=== PATIENT | male | born 1990 | race Caucasian/White ===

== ENCOUNTER 2020-01-31 07:27 | Emergency (ER) | payer OTHER, SELFPAY ==
[2020-01-31 07:45] VITALS: BP 144/79; PULSE 67; RESP 16; TEMP 37.2; O2SAT 100; BMI 32.4
--- NOTE | 2020-01-31 07:55 | CT_ITS ---
EXAMINATION: CT ABDOMEN AND PELVIS WITHOUT CONTRAST CLINICAL INFORMATION: Low back pain with rectal discomfort constipation. COMPARISON: None TECHNIQUE: Multidetector volumetric imaging was performed from the superior aspect of the liver through the pubic symphysis. Sagittal and coronal reformatted images were obtained on the technologist's workstation. This CT examination was performed using dose optimization techniques as appropriate, variously including the following: *Automated exposure control *Adjustment of mA and/or kV according to patient size (this includes techniques or standardized protocols for targeted exams where dose is matched to indication/reason for exam; i.e. extremities or head) *Use of iterative reconstruction technique DLP: 928.94 mGy-cm FINDINGS: LUNG BASES: The visualized lung bases are unremarkable. No pleural or pericardial effusion. LIVER, GALLBLADDER, AND BILIARY TREE: The liver is normal in size, shape, and attenuation. No focal hepatic lesion or biliary ductal dilatation is present. The gallbladder is unremarkable with no evidence of radiopaque gallstones, gallbladder wall thickening, or obvious pericholecystic inflammatory changes. PANCREAS: Unremarkable. SPLEEN: Unremarkable. ADRENAL GLANDS: Unremarkable. KIDNEYS AND URETERS: The kidneys are normal in size, shape, and attenuation. No hydronephrosis, hydroureter, or calculi seen. No perinephric stranding. BLADDER: Unremarkable. GASTROINTESTINAL TRACT: No dilated loops of large or small bowel are evident. No free air or free fluid is seen. No evidence of acute diverticulitis. No pericolonic inflammatory change. The appendix is visualized and appears unremarkable. Stool is seen within the rectum and sigmoid colon as well as the as ascending colon and proximal transverse colon without significant dilatation. ABDOMINAL WALL: No significant hernia is appreciated. LYMPH NODES: No lymphadenopathy identified. VASCULAR: Unremarkable. PELVIC VISCERA: Unremarkable. OSSEOUS STRUCTURES: Unremarkable. CT/CT abdomen pelvis wo con IMPRESSION: No significant abnormality. No evidence of free intra-abdominal air or fluid. No evidence of obstruction.
--- NOTE | 2020-01-31 07:55 | ED.ABDPAIN ---
HPI - Abdominal Pain General Chief Complaint: Back Pain/Injury Stated Complaint: flank pain Time Seen by Provider: 01/31/20 07:54 Source: patient Mode of arrival: ambulatory Limitations: no limitations History of Present Illness MD elicited complaint: other (hemorrhoid, constipation, low back pain) Pertinent past history: constipation Onset (ago): month(s) (few) Pain Consistency: constant Location: other (rectum and low babck) Severity: moderate Quality: aching Radiation: none Migration to: no migration Exacerbating factors: bowel movement and movement Relieving factors: nothing Associated symptoms: constipation and hematochezia (occasionally has streaked blood on stool, has tried OTCH preparation H) Related Data Previous Rx's Medication Instructions Recorded cyclobenzaprine 10 mg PO TID PRN #14 tab 01/31/20 lidocaine 1 patch TOPICAL DAILY PRN #10 ea 01/31/20 polyethylene glycol 3350 [Miralax] 17 g PO DAILY PRN #119 g 01/31/20 pramoxine [Proctofoam] 1 applic OK TID PRN #15 g 01/31/20 sennosides [senna] 8.6 mg PO DAILY PRN #30 cap 01/31/20 Allergies Allergy/AdvReac Type Severity Reaction Status Date / Time No Known Allergies Allergy Verified 01/31/20 07:48 Review of Systems Review of Systems Constitutional : No Weight loss, No Fever, No Chills, ENT/Mouth : No Hearing loss, No Ear Pain, No Nasal Congestion, No Sinus Pain, No Hoarseness, No sore throat, No Rhinorrhea, No Swallowing Difficulty Cardiovascular : No Chest Pain, No SOB Respiratory : No Cough, No Dyspnea Gastrointestinal : No Nausea, No Vomiting, No Diarrhea, No abdominal Pain, Pos constipation, pos Hematochezia, No Melena Genitourinary : No Dysuria, No Urinary Frequency, No Hematuria, No Urinary Incontinence, Musculoskeletal : positive back pain Skin : No Skin Lesions, No rash Neuro : No Weakness, No Numbness, No Paresthesias, no loss of bowel or bladder incontinence, no saddle anesthesia All other ROS reviewed and are negative Physical Exam Vital Signs: Vital Signs: Last Vital Signs Temp 98.9 F 01/31/20 07:45 Pulse 67 01/31/20 07:45 Resp 16 01/31/20 07:45 BP 144/79 H 01/31/20 07:45 Pulse Ox 100 01/31/20 07:45 Body Mass Index 32.4 Appearance: Alert. Oriented X3. No acute distress. Eyes: Pupils equal, round and reactive to light. ENT: Pharynx normal. Neck: Normal inspection. Neck supple. CVS: Normal heart rate and rhythm. Pulses normal. Respiratory: No respiratory distress. Breath sounds normal. Abdomen: Soft and nontender. Back: ttp bilateral lower lumbar no midline ttp Rectal: no thrombosis of small external hemorrhoid, small non bleeding internal hemorrhoid, no mass felt, tone normal Skin: Skin warm and dry. Normal skin color. Normal skin turgor. Extremities: No lower extremity edema. No calf ttp Neuro: Oriented X 3. No motor deficit. No sensory deficit. Course Course Course Narrative: no acute findings, will DC with GI follow up and stool regimen along with back medications MDM - Abdominal Pain MDM Narrative Medical decision making narrative: 30 yo male otherwise healthy here with low back pain, constipation, hemorrhoids for months - no weight loss, at this time will need CT scan for large mass/stool burden though likely needs good bowel regimen, water intake, will also refer to GI for colonoscopy, no b/b incontinence, no saddle anesthesia Discharge Plan Discharge Clinical Impression: Strain of lumbar region Qualifiers: Encounter type: initial encounter Qualified Code(s): S39.012A - Strain of muscle, fascia and tendon of lower back, initial encounter Constipation Qualifiers: Constipation type: unspecified constipation type Qualified Code(s): K59.00 - Constipation, unspecified Hemorrhoids Qualifiers: Hemorrhoid type: unspecified Qualified Code(s): K64.9 - Unspecified hemorrhoids Patient Disposition: Home, Self-Care Instructions: Constipation (ED), Hemorrhoids (ED), Acute Low Back Pain (ED) Additional Instructions: return to ED for any worsening symptoms or concerns Prescriptions: New cyclobenzaprine 10 mg tablet 10 mg PO TID PRN (Reason: muscle spasm) Qty: 14 RF: 0 polyethylene glycol 3350 [Miralax] 17 gram/dose powder 17 g PO DAILY PRN (Reason: constipation) Qty: 119 RF: 0 senna 8.6 mg capsule 8.6 mg PO DAILY PRN (Reason: constipation) Qty: 30 RF: 0 lidocaine 4 % adhesive patch,medicated 1 patch topical DAILY PRN (Reason: pain) Qty: 10 RF: 0 pramoxine [Proctofoam] 1 % foam 1 applic OK TID PRN (Reason: hemorrhoids) Qty: 15 RF: 0 Referrals: Tai Vu MD [Physician] - 1 week Stand Alone Forms: Work/School Release [facility] Past Medical History Attestation statement: The following information was validated with the patient. Medical History No known health problems Social History Social History Smoking Status: Never smoker Use of substances other than those prescribed or required for medical reasons: No Advance Directives: No Advance Directives Information Provided: No
[2020-01-31 09:30] VITALS: BP 148/87; PULSE 87
== END 2020-01-31 09:32 | disposition home or self-care (01) ==
PROVIDERS: Emergency Provider Emergency Medicine
DX: S39.012A Strain of muscle, fascia and tendon of lower back, initial encounter (principal); K59.00 Constipation, unspecified; K64.9 Unspecified hemorrhoids; M54.6 Pain in thoracic spine; X58.XXXA Exposure to other specified factors, initial encounter; Y93.9 Activity, unspecified; Y92.9 Unspecified place or not applicable; Y99.9 Unspecified external cause status; Z79.899 Other long term (current) drug therapy
CPT/HCPCS: 74176; 99284

== ENCOUNTER 2020-02-01 06:43 | Emergency (ER) | payer OTHER, SELFPAY ==
[2020-02-01 06:55] VITALS: BP 155/97; PULSE 73; RESP 18; TEMP 36.4; O2SAT 100; BMI 32.3
--- NOTE | 2020-02-01 06:59 | ED.ABDPAIN ---
HPI - Abdominal Pain General Chief Complaint: Back Pain/Injury Stated Complaint: BACK PAIN/CONSTIPATION Time Seen by Provider: 02/01/20 06:56 Source: patient and old records reviewed Mode of arrival: ambulatory Limitations: no limitations History of Present Illness HPI narrative: tingling in his back and burning but also cannot have a BM since he was seen yesterday and Rx medications MD elicited complaint: other (constipation) Pertinent past history: constipation Onset (ago): month(s) (few ) Pain Consistency: intermittent Location: diffuse and other (back) Severity: moderate Quality: burning Radiation: none Migration to: no migration Exacerbating factors: bowel movement Relieving factors: nothing Associated symptoms: constipation Treatments prior to arrival: NSAIDs, prescription analgesics and other (tried taking stool regimen but no BM) Related Data Previous Rx's Medication Instructions Recorded cyclobenzaprine 10 mg PO TID PRN #14 tab 01/31/20 lidocaine 1 patch TOPICAL DAILY PRN #10 ea 01/31/20 polyethylene glycol 3350 [Miralax] 17 g PO DAILY PRN #119 g 01/31/20 pramoxine [Proctofoam] 1 applic OK TID PRN #15 g 01/31/20 sennosides [senna] 8.6 mg PO DAILY PRN #30 cap 01/31/20 Allergies Allergy/AdvReac Type Severity Reaction Status Date / Time No Known Allergies Allergy Verified 01/31/20 07:48 Review of Systems Review of Systems Constitutional : No Weight loss, No Fever, No Chills, ENT/Mouth : No Hearing loss, No Ear Pain, No Nasal Congestion, No Sinus Pain, No Hoarseness, No sore throat, No Rhinorrhea, No Swallowing Difficulty Cardiovascular : No Chest Pain, No SOB Respiratory : No Cough, No Dyspnea Gastrointestinal : No Nausea, No Vomiting, No Diarrhea, No abdominal Pain, No Hematochezia, No Melena, positive constipation Genitourinary : No Dysuria, No Urinary Frequency, No Hematuria, No Urinary Incontinence, Musculoskeletal : positive back pain Skin : No Skin Lesions, No rash Neuro : No Weakness, No Numbness, No Paresthesias, no loss of bowel or bladder incontinence, no saddle anesthesia All other systems reviewed and are negative Physical Exam Vital Signs: Vital Signs: Last Vital Signs Temp 97.6 F 02/01/20 06:55 Pulse 73 02/01/20 06:55 Resp 18 02/01/20 06:55 BP 155/97 H 02/01/20 06:55 Pulse Ox 100 02/01/20 06:55 Body Mass Index 32.3 Appearance: Alert. Oriented X3. No acute distress. Anxious Eyes: Pupils equal, round and reactive to light. ENT: Pharynx normal. Neck: Normal inspection. Neck supple. CVS: Normal heart rate and rhythm. Pulses normal. Respiratory: No respiratory distress. Breath sounds normal. Abdomen: Soft and nontender. Skin: Skin warm and dry. Normal skin color. Normal skin turgor. Extremities: No lower extremity edema. No calf ttp Neuro: Oriented X 3. No motor deficit. No sensory deficit. Course Course Course Narrative: LABS WNL MDM - Abdominal Pain MDM Narrative Medical decision making narrative: 30 yo male with burning back pain for a few months now with constipation - has normal rectal tone, no b/b incontinence, no saddle anesthesia, seen yesterday for same CT scan stool burden - given Rx but no BM, he is very concerned - given repeat visit, lytes ordered and will give lactulose and mag citrate for BM - no need for repeat imaging. Lab Data Result diagrams: 02/01/20 07:04 02/01/20 07:04 Labs: Lab Results 02/01/20 Range/Units 07:04 Sodium 137 (135-145) mmol/L Potassium 4.2 (3.3-5.1) mmol/l Chloride 101 (96-108) mmol/L Carbon Dioxide 30 H (22-29) mmol/L Anion Gap 10 L (12-20) BUN 15 (9-16) mg/dL Creatinine 1.11 (0.5-1.4) mg/dL Estim Creat Clear Calc 121.2 Estimated GFR > 60 Random Glucose 103 (60-115) mg/dL Calcium 8.8 (8.4-10.2) mg/dL Magnesium 2.1 (1.6-2.6) mg/dL Discharge Plan Discharge Clinical Impression: Constipation Qualifiers: Constipation type: unspecified constipation type Qualified Code(s): K59.00 - Constipation, unspecified Patient Disposition: Home, Self-Care Instructions: Constipation (ED) Additional Instructions: return to ED for any worsening symptoms or concerns TAKE THE MAGNESIUM CITRATE 1/4 OF BOTTLE EVERY 30 MINUTES UNTIL BOWEL MOVEMENT ACHIEVED. DRINK PLENTY OF WATER Prescriptions: No Action cyclobenzaprine 10 mg tablet 10 mg PO TID PRN (Reason: muscle spasm) Qty: 14 RF: 0 polyethylene glycol 3350 [Miralax] 17 gram/dose powder 17 g PO DAILY PRN (Reason: constipation) Qty: 119 RF: 0 senna 8.6 mg capsule 8.6 mg PO DAILY PRN (Reason: constipation) Qty: 30 RF: 0 lidocaine 4 % adhesive patch,medicated 1 patch topical DAILY PRN (Reason: pain) Qty: 10 RF: 0 pramoxine [Proctofoam] 1 % foam 1 applic OK TID PRN (Reason: hemorrhoids) Qty: 15 RF: 0 PMFSH Past Medical History Attestation statement: The following information was validated with the patient. Medical History No known health problems Social History Social History Smoking Status: Never smoker Smoked in Last 30 Days: No Use of substances other than those prescribed or required for medical reasons: No Advance Directives: No Advance Directives Information Provided: No
[2020-02-01 07:34] LABS: Anion Gap 10 (12-20); Blood Urea Nitrogen 15 mg/dL (9-16); Calcium 8.8 mg/dL (8.4-10.2); Carbon Dioxide 30 mmol/L (22-29); Chloride 101 mmol/L (96-108); Creatinine Clr Calc Pharmacy 121.2; Estimated Glomerular Filt Rate > 60; Glucose Random 103 mg/dL (60-115); Magnesium 2.1 mg/dL (1.6-2.6); Potassium 4.2 mmol/l (3.3-5.1); Sodium 137 mmol/L (135-145)
[2020-02-01] MEDS: Magnesium Citrate 300 ML SOLUTION PO (07:46)
[2020-02-01] MEDS: Lactulose 20 GM/30 ML SOLUTION 30 GM PO (07:47)
== END 2020-02-01 07:50 | disposition home or self-care (01) ==
PROVIDERS: Emergency Provider Emergency Medicine
DX: K59.00 Constipation, unspecified (principal); M54.5 Low back pain; Z79.899 Other long term (current) drug therapy
CPT/HCPCS: 80048; 83735; 99283

== ENCOUNTER → 2020-09-15 15:18 | Outpatient (BNVA) | payer MEDICAID, SELFPAY | PROVIDERS: PCP Registered Nurse; Referring Provider Registered Nurse; Visit Provider Nurse Practitioner Family | DX: K64.9 Unspecified hemorrhoids (principal); K59.00 Constipation, unspecified; R14.3 Flatulence; R19.7 Diarrhea, unspecified | CPT/HCPCS: 99202 ==

== ENCOUNTER → 2020-10-22 15:22 | Outpatient (BNVA) | payer MEDICAID, SELFPAY | PROVIDERS: PCP Registered Nurse; Visit Provider Nurse Practitioner Family ==